=== PATIENT | female | born 2000 | race Two or more races ===

== ENCOUNTER 2022-05-16 14:46 | Emergency (ER) | payer SELFPAY ==
[~2022-05-16] VITALS: Ht 165.1 cm; Wt 54.4 kg
--- NOTE | 2022-05-16 15:08 | NUR ---
TO ER BED 9, BIB FAMILY C/O HEADACHE BACK OF THE HEAD W VOMIT, DIZZINESS, AAOX4, BREATHING EVEN AND NON LABORED, CONNECTED TO MONITOR, AWAITING MD ORDERS
--- NOTE | 2022-05-16 15:37 | NUR ---
DR ARDON AT BEDSIDE FOR EVAL
[2022-05-16] MEDS ORDERED: PROCHLORPERAZINE EDISYLATE 10 MG/2 ML VIAL ONE (15:50)
[2022-05-16] MEDS ORDERED: diphenhydrAMINE HCL 50 MG/ML VIAL ONE (15:50)
[2022-05-16] MEDS ORDERED: IV NS 0.9% 1,000 ML IV ONE (16:00)
[2022-05-16] MEDS ORDERED: KETOROLAC TROMETHAMINE INJ 30 MG/ML VIAL IV ONE (16:00)
[2022-05-16] MEDS ORDERED: diphenhydrAMINE HCL 50 MG/ML VIAL IV ONE (16:00)
[2022-05-16] MEDS ORDERED: PROCHLORPERAZINE EDISYLATE 10 MG/2 ML VIAL IVP ONE (16:00)
[2022-05-16] MEDS ORDERED: KETOROLAC TROMETHAMINE 15 MG/ML VIAL ONE (16:06)
--- NOTE | 2022-05-16 17:30 | NUR ---
IV removed. Catheter intact and site benign. Pressure and 4x4 applied to site. No bleeding noted.
--- NOTE | 2022-05-16 17:34 | NUR ---
Patient discharged to home in stable condition. Written and verbal after care instructions given. Patient verbalizes understanding of instruction.
[2022-05-16 17:36] VITALS: BP 122/69
== END 2022-05-16 17:36 | disposition home or self-care (01) ==
LOC: ER 14:52
DX: R51.9 Headache, unspecified (principal)
CPT/HCPCS: 99284; 96374; 96375; 96361; 84703; J0780; J1200; J7030; J1885